=== PATIENT | male | born 1955 | race Caucasian/White ===

== ENCOUNTER 2017-10-05 00:51 | Inpatient (IN) | payer SELFPAY ==
[2017-10-05] MEDS ORDERED: Enoxaparin Sodium 120 MG/0.8 ML SYRINGE SC SCH (02:15)
[2017-10-05 02:31] LABS: Troponin I Less than 0.010 ng/mL (< 0.028)
--- NOTE | 2017-10-05 04:14 | HP ---
DATE OF ADMISSION: 10/05/2017 CHIEF COMPLAINT: Chest pain. PRIMARY CARE PHYSICIAN: [facility]. HISTORY OF PRESENTING ILLNESS: Mr. Michael Werner is a 62-year-old male with past medical history of C OPD, diabetes, hypertension, dyslipidemia, and tobacco abuse, who presented to the emergency room wit h the above-mentioned complaint. History is mainly obtained by the patient himself. [facility] records have been reviewed. According to Mr. Werner, he was chopping some wood outside, as he usually does, when he started to have some pain in the left lateral chest radiating under his arm. It was associated with some shortness of breath and nausea. It lost few minutes and then resolved. He has had multiple repeat episodes si nce then and have been increasing in intensity. Upon arrival to the emergency room in the [facility], he was chest pain free. He was hemodynamically stable. His initial workup included a 12-le ad EKG, which showed right bundle branch block. Cardiac enzymes are negative. He was given aspirin and was sent to [facility]. In our emergency room, he received one dose of Lovenox at 1 mg/kg dosing for possible unstable angina and is now being admitted for same. His repeat cardiac enzymes is also negative. The patient otherwise denies any other recent illnesses. His primary documentation writer has been Dr. Gordo nguyen, but because of insurance issue has not been followed up. He repeats that he had a cardiac cath eterization done 3 times, the recent one was about 2 or 3 years ago and it was normal. The patient h ad a normal stress test in our facility in 08/2013. PAST MEDICAL HISTORY: 1. COPD. 2. Diabetes mellitus. 3. Hypertension. 4. Dyslipidemia. 5. Tobacco abuse. 6. Morbid obesity. 7. History of cholelithiasis, status post laparoscopic cholecystectomy. PAST SURGICAL HISTORY: Laparoscopic cholecystectomy. ALLERGIES: No known medication allergies. SOCIAL HISTORY: He is to his for 42 years. He has history of heavy alcohol abuse, but quit 15 years ago. He has history of tobacco abuse and currently smoking about 1 pack of cigarettes per day. He used to smoke about 5 pack of cigarettes per day. FAMILY HISTORY: Significant for coronary artery disease and heart attack in his father who at t he age of 61 years. Mother in a fire accident. CURRENT MEDICATIONS: Metformin 500 mg daily, carvedilol 6.25 mg b.i.d., levothyroxine 88 mcg daily, escitalopram 20 mg daily, but the patient is not able to afford this medication and has been off it. Lisinopril 10 mg b.i.d. Please note that the patient was told to take an aspirin a day, but he has not been taking it regularly. REVIEW OF SYSTEMS: The following complete review of systems was negative, unless otherwise mentioned in the HPI or below: Constitutional: Weight loss or gain, ability to conduct usual activities. Sk in: Rash, itching. Eyes: Double vision, pain. ENT/Mouth: Nose bleeding, neck stiffness, pain, te nderness. Cardiovascular: Palpitations, dyspnea on exertion, orthopnea. Respiratory: Shortness of breath, wheezing, cough, hemoptysis, fever, or night sweats. Gastrointestinal: Poor appetite, abdo richard pain, heartburn, nausea, vomiting, constipation, or diarrhea. Genitourinary: Urgency, frequen cy, dysuria, nocturia. Musculoskeletal: Pain, swelling. Neurologic/Psychiatric: Anxiety, depressi on. Allergy/Immunologic: Skin rash, bleeding tendency. PHYSICAL EXAMINATION: VITAL SIGNS: Blood pressure 152/92, pulse of 82, saturating 93% on room air, respirations 18, temper ature 98.5. GENERAL: No acute distress, awake, alert, oriented x3, sitting up in chair and wants to go home. Aw norberto, alert, oriented x3. HEENT: Mucous membrane is moist and pink. No oropharyngeal exudate or erythema. Head is normocepha lic, atraumatic. Pupils are equal, reactive to light and accommodation. Extraocular movements intac t. NECK: Supple without any lymphadenopathy, JVD, or bruit. CHEST: Clear to auscultation without any wheezing, rales, or rhonchi. He has decreased breath sound s at bases bilaterally. ABDOMEN: Morbidly obese, soft, nontender, nondistended. Positive bowel sounds. EXTREMITIES: Free of any cyanosis, clubbing, or edema. NEUROLOGIC: Nonfocal. SKIN: Free of any rashes or bruises. PSYCHIATRIC: Normal affect. LABORATORY DATA: CBC is unremarkable. WBC is 10.5, hemoglobin 17.2, platelet count of 159. Serum c hemistries are also unremarkable. Liver enzymes within normal limits. CK-MB 0.7, troponin less than 0.010. BNP 27, blood sugar 98. Chest x-ray by my review has no evidence to suggest pleural effusion, edema, or infiltrate. A 12-benjy d EKG by my review shows complete right bundle branch block with normal ST segments and T waves. Nor mal sinus rhythm at 71 beats per minute. IMPRESSION AND PLAN: 1. Chest pain. The patient has multiple risk factors and this can possibly be unstable angina. At this time, he will be admitted to hospital and we will continue full-dose aspirin. We will obtain a nuclear medicine stress test and consult Cardiology for further recommendations if he needs to underg o cardiac catheterization. He will be on telemetry unit. We will continue to trend serial cardiac e nzymes and check a lipid panel as well. 2. Diabetes mellitus type 2. We will hold his metformin for now in case if he undergoes cardiac cat heterization to prevent any injury. He will be treated with insulin sliding scale with frequent Accu -Cheks. 3. Hypertension. We will resume his JACLYN inhibitor and beta meenu in the form of lisinopril and ca rvedilol respectively. 4. Hypothyroidism, restart his levothyroxine. 5. Morbid obesity. 6. Tobacco abuse. The patient has been counseled. 7. Code status: FULL CODE. Discussed with the patient. DISPOSITION: Mr. Werner is being admitted for chest pain likely unstable angina. Estimated length of stay is at least 2-3 midnights. Further management will depend upon his clinical course.
[2017-10-05] MEDS ORDERED: Bisacodyl 5 MG TAB PO PRN (04:43)
[2017-10-05] MEDS ORDERED: Benzonatate 100 MG CAP PO PRN (04:43)
[2017-10-05] MEDS ORDERED: Ondansetron HCl/PF 4 MG/2 ML Vial IVP PRN ×2 (04:43)
[2017-10-05] MEDS ORDERED: Mag-Al 1200 mg/1200 mg/30 ML UDCUP PO PRN (04:43)
[2017-10-05] MEDS ORDERED: Dextrose 50% Abboject 50 ML SYRINGE SLOW IVP PRN (04:43)
[2017-10-05] MEDS ORDERED: Acetaminophen 325 MG TAB PO PRN (04:43)
[2017-10-05] MEDS ORDERED: hydrALAZINE 20 MG/ML VIAL SLOW IVP PRN (04:43)
[2017-10-05] MEDS ORDERED: Senokot 8.6 MG TAB PO PRN (04:43)
[2017-10-05] MEDS ORDERED: Diabetic Tussin 200 MG/10 ML UDCUP PO PRN (04:43)
[2017-10-05] MEDS ORDERED: Lorazepam 1 MG TAB PO PRN (04:43)
[2017-10-05] MEDS ORDERED: Nitroglycerin 0.4 MG TAB (25 Tab Bottle) SL PRN (04:43)
[2017-10-05] MEDS ORDERED: cloNIDine 0.1 MG TAB PO PRN (04:43)
[2017-10-05] MEDS ORDERED: HumaLOG 300 UNITS/3 ML VIAL SC PRN ×2 (04:43)
[2017-10-05] MEDS ORDERED: Calcium Carbonate 500 MG ChewTAB PO PRN (04:43)
[2017-10-05] MEDS ORDERED: Dextrose 5% in Water 1,000 ML IV PRN (04:43)
[2017-10-05] MEDS ORDERED: Loratadine 10 MG TAB PO PRN (04:43)
[2017-10-05] MEDS ORDERED: traMADol HCl 50 MG TAB PO PRN (04:43)
[2017-10-05 05:13] LABS: Troponin I 0.013 ng/mL (< 0.028)
[2017-10-05 05:54] LABS: Cardiac Risk 6.7 (Less than 4.5)
[2017-10-05] MEDS ORDERED: Levothyroxine Sodium 88 MCG TAB PO SCH (06:00)
[2017-10-05 06:50] VITALS: BMI 39.4
[2017-10-05] MEDS ORDERED: Carvedilol 6.25 MG TAB PO SCH (08:00)
[2017-10-05 08:02] LABS: Troponin I Less than 0.010 ng/mL (< 0.028)
[2017-10-05] MEDS ORDERED: Aspirin 325 MG TAB PO SCH (09:00)
[2017-10-05] MEDS ORDERED: Enoxaparin Sodium 40 MG/0.4 ML SYRINGE SC SCH (09:00)
[2017-10-05] MEDS: Lisinopril 10 MG TAB PO SCH ×2 (09:00→21:07)
--- NOTE | 2017-10-05 12:04 | PDOC.EVN ---
Event Note - Event Note Event Note: CC: Chest pain sub: pt denies dyspnea. denies chest pain VS: Reviewed HEENT: Anterior nares patent, nose normal CVS: S1S2 present, rrr, no murmur, no rubs, no gallop RS: No wheezing, no rhonchi, no accessory muscle usage GI: Soft, nttp, no guarding ENVIRONMENTAL RESEARCH PROJECT MANAGER: Alert and oriented, follows commands A/P: Pt is 62 yrs old male now admitted to hospital due to chest pain 1. Chest pain: S/P Stress test. Appreciate cardio input Monitor for now 2. HTN: Monitor bp closely case d/w pt & RN
[2017-10-05 14:25] LABS: #Basophils 0.1 thou/uL (0.0-0.2); #Eosinphils 0.1 thou/uL (0.0-0.7); #Lymphocytes 2.6 thou/uL (1.20-3.40); #Monocytes 0.6 thou/uL (0.11-0.59); %Basophils 0.9 % (0.0-1.0); %Eosinophils 1.7 % (0.0-10.0); %Lymphocytes 31.3 % (21.0-51.0); %Monocytes 6.8 % (0.0-10.0); %Neutrophils 59.3 % (42.0-75.0); Hemoglobin 17.8 g/dL (14.0-18.0); Mean Corpuscular HGB CONC 32.5 g/dL (32.0-36.0); Mean Corpuscular Hemoglobin 31.6 pg (27.0-31.0); Mean Corpuscular Volume 97.4 fl (80.0-94.0); Mean Platelet Volume 8.4 fL (7.4-10.4); Platelet Count 158 thou/uL (130-400); RBC Distribution Width 13.7 % (11.5-14.5); Red Blood Cell (RBC) Count 5.63 mill/uL (4.70-6.10); White Blood Cell (WBC) Count 8.3 thou/uL (4.8-10.8)
[2017-10-05 14:43] LABS: Anion Gap 13 mmol/L (10-20); BUN (Urea Nitrogen) 13 mg/dL (8.4-25.7); Calc. Creatinine Clearance 145 mL/min (70-130); Calcium 9.3 mg/dL (7.8-10.44); Carbon Dioxide 23 mmol/L (23-31); Chloride 106 mmol/L (98-107); Estimated GFR-MDRD 84; Glucose 99 mg/dL (80-115); Potassium 4.3 mmol/L (3.5-5.1); Sodium 138 mmol/L (136-145)
[2017-10-05] MEDS ORDERED: Regadenoson 0.4 MG/5 ML SYRINGE ONE (16:08)
--- NOTE | 2017-10-05 17:47 | CON ---
DATE OF CONSULTATION: 10/05/2017 REASON FOR CONSULTATION: Chest pain. HISTORY OF PRESENT ILLNESS: Mr. Werner is a 62-year-old gentleman with history of multiple cardiac cat heterizations, who presented with recurrent chest pain. Mr. Werner states that he had an episode of chest pain which brought him to the hospital early this mor harry. He previously had some chest pain on the left lateral chest under his arm. He felt short of b reath and nauseated, it lasted for a few minutes and resolved. He ultimately came to the emergency r oom. Cardiac enzymes are negative. The patient was given one dose of Lovenox 1 mg/kg subcutaneous. Currently, pain free. PAST MEDICAL HISTORY: He has a history of multiple cardiac catheterizations last one was 2012, he is not completely sure. He said he was told that "he had the heart of 20-year-old" but his said h teri had one vessel with a very small amount of narrowing. PAST MEDICAL HISTORY: 1. Chronic obstructive pulmonary disease. 2. Diabetes. 3. Hypertension. 4. Smoking, continues to smoke. 5. Morbid obesity. 6. History of cholelithiasis. PAST SURGICAL HISTORY: Laparoscopic cholecystectomy. ALLERGIES: None known. SOCIAL HISTORY: He is to his for 42 years. He previously heavy alcohol use, now abstin ent. History of very heavy tobacco use, four packs a day, now he is down to half pack a day. FAMILY HISTORY: Positive for coronary disease. MEDICATIONS: 1. Metformin. 2. Carvedilol. 3. Levothyroxine. 4. Lexapro. 5. Lisinopril. REVIEW OF SYSTEMS: Constitutional: No significant weight gain or loss. Vision: No changes. Hearing: No changes. Pu lmonary: No cough or wheezing. Gastrointestinal: No nausea, vomiting, diarrhea. Skin: No rashes. Neurologic: No unilateral weakness or numbness. Psychiatric: No unusual depression or anxiety. Hematologic: No unusual bruising. Genitourinary: No burning with urination. PHYSICAL EXAMINATION: GENERAL: This is a pleasant middle-aged gentleman, in no distress. VITAL SIGNS: Blood pressure 128/80, pulse 60 and regular. HEENT: Sclerae nonicteric. Mouth mucous membranes moist. NECK: Supple. No lymphadenopathy. LUNGS: Clear. CARDIAC: Normal S1, normal S2. There is no murmur, rub, or gallop. ABDOMEN: Soft, nontender, no hepatosplenomegaly. EXTREMITIES: Warm and dry. No clubbing or cyanosis. There is no significant edema. PERTINENT LABORATORY AND X-RAY FINDINGS: EKG: Sinus rhythm with right bundle branch block and PVCs. TSH 11.5. LDL: Cholesterol 73, troponins are normal. ASSESSMENT: 1. Chest pain, possibly angina. 2. Diabetes. 3. Smoking. 4. Hypercholesterolemia, being treated. PLAN: Part of this stress test has been done today. The rest is pending for tomorrow morning. Furt her recommendations after the stress test is back.
[2017-10-05] MEDS ORDERED: Atorvastatin Calcium 20 MG TAB PO SCH (21:00)
[2017-10-05] MEDS: Carvedilol 6.25 MG TAB PO SCH (21:08)
[2017-10-06 05:49] LABS: #Eosinphils 0.2 thou/uL (0.0-0.7); #Lymphocytes 2.4 thou/uL (1.20-3.40); #Monocytes 0.6 thou/uL (0.11-0.59); #Neutrophils 5.8 thou/uL (1.40-6.50); %Basophils 0.4 % (0.0-1.0); %Eosinophils 1.9 % (0.0-10.0); %Lymphocytes 26.8 % (21.0-51.0); %Monocytes 6.5 % (0.0-10.0); %Neutrophils 64.4 % (42.0-75.0); Hemoglobin 17.2 g/dL (14.0-18.0); Mean Corpuscular HGB CONC 32.5 g/dL (32.0-36.0); Mean Corpuscular Hemoglobin 31.6 pg (27.0-31.0); Mean Corpuscular Volume 97.2 fl (80.0-94.0); Platelet Count 162 thou/uL (130-400); RBC Distribution Width 13.6 % (11.5-14.5); Red Blood Cell (RBC) Count 5.45 mill/uL (4.70-6.10); White Blood Cell (WBC) Count 8.9 thou/uL (4.8-10.8)
[2017-10-06] MEDS ORDERED: Levothyroxine Sodium 50 MCG TAB PO SCH (06:00)
[2017-10-06 06:07] LABS: Anion Gap 16 mmol/L (10-20); BUN (Urea Nitrogen) 13 mg/dL (8.4-25.7); Calc. Creatinine Clearance 151 mL/min (70-130); Calcium 9.2 mg/dL (7.8-10.44); Carbon Dioxide 19 mmol/L (23-31); Chloride 105 mmol/L (98-107); Estimated GFR-MDRD 88; Glucose 113 mg/dL (80-115); Sodium 136 mmol/L (136-145)
[2017-10-06 06:27] LABS: Free T4 (Free Thyroxine) 0.79 ng/dL (0.70-1.48)
[2017-10-06] MEDS ORDERED: Aspirin 325 MG TAB PO SCH (09:00)
--- NOTE | 2017-10-06 09:18 | PDOC.PN ---
- Subjective Encounter Start Date: 10/06/17 Encounter Start Time: 10:00 Subjective: Patient without chest pain. Wants to go home. - Objective MAR Reviewed: Yes Vital Signs & Weight: Vital Signs (12 hours) Temp Pulse Resp BP BP Pulse Ox 10/06/17 07:15 97.5 F L 64 20 114/64 99 10/06/17 04:00 97.7 F 71 18 113/70 98 Weight Weight 266 lb I&O: 10/05/17 10/06/17 10/07/17 06:59 06:59 06:59 Intake Total 480 Balance 480 Result Diagrams: 10/06/17 04:58 10/06/17 04:58 Additional Labs: Accuchecks 10/06/17 10/05/17 06:24 21:06 POC Glucose 135 H 106 Phys Exam - Physical Examination Constitutional: NAD Obese HEENT: moist MMs Respiratory: no wheezing, no rales, no rhonchi Cardiovascular: RRR, no significant murmur Gastrointestinal: soft, positive bowel sounds Obese Neurological: non-focal, moves all 4 limbs Psychiatric: normal affect, A&O x 3 Dx/Plan (1) Chest pain, rule out acute myocardial infarction Code(s): R07.9 - CHEST PAIN, UNSPECIFIED Status: Acute Comment: Stress test with reversible perfusion defect in anteriolateral wall (2) DM type 2 (diabetes mellitus, type 2) Status: Chronic (3) HTN (hypertension) Code(s): I10 - ESSENTIAL (PRIMARY) HYPERTENSION Status: Chronic Qualifiers: Hypertension type: essential hypertension Qualified Code(s): I10 - Essential (primary) hypertension (4) Hypothyroidism Code(s): E03.9 - HYPOTHYROIDISM, UNSPECIFIED Status: Chronic (5) COPD (chronic obstructive pulmonary disease) Status: Chronic (6) Tobacco abuse Code(s): Z72.0 - TOBACCO USE Status: Chronic - Plan cont current plan of care, DVT proph w/lovenox Stress test with small reversible defect. Will await cardiology recs. * . - Discharge Day Encounter end time: 10:30
[2017-10-06] MEDS: Carvedilol 6.25 MG TAB PO SCH (12:03)
[2017-10-06] MEDS: Lisinopril 10 MG TAB PO SCH (12:03)
[2017-10-06 12:04] VITALS: BP 93/61
--- NOTE | 2017-10-06 12:23 | NM ---
NUCLEAR MEDICINE CARDIAC MYOCARDIAL PERFUSION SPECT EJECTION FRACTION STUDY WALL MOTION CINE: HISTORY: 62-year-old male with chest pain. TECHNIQUE: Number of days: 2 Rest study: Tc99m sestamibi (Cardiolite) dose: 28.0 mCi Pharmacologic stress: Lexiscan dose: 0.4 mg Stress study: Tc99m sestamibi (Cardiolite) dose: 28.0 mCi FINDINGS: CARDIAC (MYOCARDIAL PERFUSION) SPECT There is a small, faint, apparent perfusion defect at the anterolateral wall near the apex seen on th e stress images, but not visualized on the rest images. No fixed perfusion defect is identified. EJECTION FRACTION STUDY EF = 53% WALL MOTION CINE Hypokinetic septum. IMPRESSION: Questionable small region of reversible ischemia in the anterolateral wall near the apex. CODE T. JN R POS: DANIELLE
[2017-10-06 13:13] VITALS: TEMP 98
--- NOTE | 2017-10-06 15:00 | DIS ---
PRIMARY CARE PHYSICIAN: [facility]. ADMISSION DIAGNOSES: 1. Chest pain. 2. Diabetes mellitus type 2. 3. Hypertension. 4. Hypothyroidism. 5. Morbid obesity. 6. Tobacco abuse. DISCHARGE DIAGNOSES: 1. Coronary artery disease with mildly abnormal stress test. 2. Diabetes mellitus type 2. 3. Hypertension. 4. Hypothyroidism. 5. Morbid obesity. 6. Tobacco abuse. PROCEDURES: Nuclear medicine stress test showing questionable small region of reversible ischemia in the anterior lateral wall near the apex and an ejection fraction of 53% with a hypokinetic septum. CONSULTATIONS: Cardiology, Dr. Rojas. PERTINENT LABORATORY DATA: Cardiac markers set negative x3. Triglycerides were elevated at 200. Cholesterol profile was okay. TSH was a little elevated at 11.5 with a normal free T4 and free T3. SUMMARY OF HOSPITAL COURSE: This is a 62-year-old white male with a known history of COPD, diabetes, hypertension, dyslipidemia, and tobacco abuse who presented with chest pain. Chest pain came on while he was chopping wood associated with shortness breath and nausea and by the time he got to the emergency room, he was chest pain free. Cardiac enzymes were negative in the hospital. Dr. Rojas was consulted for Cardiology, ordered a nuclear medicine stress test, it was a 2-day test. This showed the above results. His medications adjusted with a decrease in his lisinopril due to his blood pressure is running a bit low and his pravastatin was changed to atorvastatin and the patient was cleared to go home by Dr. Rojas the day of discharge. DISCHARGE PLAN: Discharge home. Follow up with [facility] in the next 7- [address] Rojas in the next 2-3 weeks. ACTIVITY: As tolerated. Diabetic, low sodium diet. DISCHARGE MEDICATIONS: 1. Lisinopril 5 mg daily, 30 tablets dispensed. 2. Atorvastatin 40 mg daily, 30 tablets dispensed. 3. Continue other medications. 4. Carvedilol 6.25 mg twice a day. 5. Aspirin 325 mg daily. 6. Gabapentin 300 mg 3 times a day. 7. Levothyroxine 75 mcg daily. 8. Metformin 500 mg twice a day. 9. Lexapro 10 mg daily. 10. Nitroglycerin sublingual as needed written by Dr. Rojas. [facility]
--- NOTE | 2017-10-06 15:20 | PRG ---
DATE OF SERVICE: 10/06/2017 SUBJECTIVE: Mr. Werner has did well. Currently, no chest pain or pressure. OBJECTIVE: VITAL SIGNS: Blood pressure was 114/64 with a followup was 93/61. LUNGS: Clear. CARDIAC: Normal S1, normal S2. ABDOMEN: Soft, nontender. EXTREMITIES: There is no edema. Femoral pulse is strong on the right side. IMAGING: Stress test was done. The test indicated a questionable small region of reversible ischemi a in the anterior lateral wall near the apex with an ejection fraction of 53%. ASSESSMENT: 1. Chest pain suspicious for angina. 2. Minimal coronary disease at catheterization by Dr. Cortes 5 years ago per family. 3. Hypercholesterolemia, on treatment, LDL 73. PLAN: I had a long discussion with the patient about medical therapy versus repeating cardiac cathet erization. I discussed the advantage of cardiac catheterization being the more definitive test. Florentin garcia explained to him that in view of the findings that a cardiac catheterization was not absolutely man datory, but certainly could be done. After further discussion, the patient prefers not to have cardi ac catheterization and will be discharged on medications, on aspirin 81 mg a day, atorvastatin 40 mg a day, carvedilol 6.25 mg twice daily, lisinopril 5 mg a day. I asked patient to come back and see elda williamson in the office in a month. If he has recurrent chest pain unresolved quickly with nitroglycerin, he should come back to the hospital. The patient declines cardiac catheterization at this point. Nitr oglycerin if needed.
[2017-10-06] MEDS ORDERED: Atorvastatin Calcium 40 MG TAB PO SCH (21:00)
[2017-10-07] MEDS ORDERED: Lisinopril 5 MG TAB PO SCH (09:00)
--- NOTE | 2017-10-10 15:15 | EKG ---
Test Reason : Blood Pressure : / mmHG Vent. Rate : 072 BPM Atrial Rate : 072 BPM P-R Int : 172 ms QRS Dur : 122 ms QT Int : 426 ms P-R-T Axes : 066 224 053 degrees QTc Int : 466 ms Normal sinus rhythm Right bundle branch block Abnormal ECG Confirmed by REGAN MICHELLE, RAMONA ([id number]), editor dictionary ROSEANNA COVARRUBIAS ([id number]) on 10/10/2017 3:14:31 PM Referred By: MD SPEARS Confirmed By:RAMONA SPEARS MD
--- NOTE | 2017-10-15 13:03 | STRESS ---
Acquisition Time: 2017-10-05 11:47:09 Total Exercise Time: 00:01:00 Test Indications: CHEST PAIN Medications: Protocol: LEXISCAN Max HR: 092 BPM 57% of Pred: 159 BPM Max BP: 124/076 mmHG Max Work Load: 1.0 METS RESTING ECG: NORMAL SINUS RHYTHM AT 65 BPM WITH COMPLETE RIGHT BUNDLE BRANCH BLOCK AND RARE PVC'S SYMPTOMS: NONE NORMAL BP RESPONSE ECTOPY: NONE ECG STRESS: NO SIGNIFICANT CHANGES INTERPRETATION: NEGATIVE ECG/ AWAIT NUCLEAR IMAGES FOR DEFINITIVE DIAGNOSIS Confirmed by DR. Jodie BARRETT ([id number]), photography editor RAVINDER AKHTAR ([id number]) on 10/15/2017 1:03:10 PM Referred By: MD Neymar BOURNE Confirmed By:DR. Jodie BARRETT
== END 2017-10-06 16:23 | disposition home or self-care (01) | DRG 303 ==
LOC: ERS 00:51 → ERHOLD 02:01 → 2NO 10:39
PROVIDERS: ADMIT Internal Medicine; ATTEND Internal Medicine
PROC: 5A2204Z Restoration of Cardiac Rhythm, Single (ICD-10-PCS; principal; 2017-10-06)
DX: I25.110 Atherosclerotic heart disease of native coronary artery with unstable angina pectoris (principal); E66.01 Morbid (severe) obesity due to excess calories; I10 Essential (primary) hypertension; E03.9 Hypothyroidism, unspecified; E11.9 Type 2 diabetes mellitus without complications; E78.5 Hyperlipidemia, unspecified; J44.9 Chronic obstructive pulmonary disease, unspecified; E78.00 Pure hypercholesterolemia, unspecified; F17.210 Nicotine dependence, cigarettes, uncomplicated; R94.39 Abnormal result of other cardiovascular function study; Z68.39 Body mass index [BMI] 39.0-39.9, adult
CPT/HCPCS: 36415; 36416; 78452; 80048; 80061; 84439; 84443; 84481; 84484; 85025; 93005; 93017; 94760; 96360; 96372; 99406; A9500; J1650; J2785

== ENCOUNTER 2024-03-02 17:18 | Emergency (ER) | payer SELFPAY ==
[~2024-03-02 17:18] MED LIST: Iopamidol-370 76% 500 ML MDV (1 ML CHARGE) ONE
[2024-03-02] MEDS ORDERED: HYDROcodone/Acetaminophen 10/325 mg Tablet ONE (18:01)
[2024-03-02 18:31] LABS: #Basophils Less than 0.03 10x3/uL (0.0-0.2); %Basophils 0.3 % (0.0-1.0); %Lymphocytes 25.2 % (21.0-51.0); %Monocytes 8.6 % (0.0-10.0); %Neutrophils 64.5 % (42.0-75.0); Hematocrit 47.4 % (42.0-52.0); Hemoglobin 16.1 g/dL (14.0-18.0); Mean Corpuscular Volume 88.4 fL (78.0-98.0); Mean Platelet Volume 9.9 fL (7.4-10.4); Platelet Count 168 10x3/uL (130-400); RBC Distribution Width 17.8 % (11.5-14.5); Red Blood Cell (RBC) Count 5.36 mill/uL (4.70-6.10)
[2024-03-02 18:48] LABS: CRP,High Sensitivity (Inhouse) 2.77 mg/dL (< or = 0.5)
[2024-03-02 18:49] LABS: ALT (SGPT) 14 U/L (8-55); AST (SGOT) 22 U/L (5-34); Albumin 3.1 g/dL (3.4-4.8); Alkaline Phosphatase 95 U/L (40-110); Anion Gap 11 mmol/L (10-20); BUN (Urea Nitrogen) 11 mg/dL (8.4-25.7); Bilirubin, Total 0.7 mg/dL (0.2-1.2); Calc. Creatinine Clearance 0 mL/min (70-130); Calcium 9.3 mg/dL (7.8-10.44); Carbon Dioxide 28 mmol/L (23-31); Chloride 100 mmol/L (98-107); Estimated GFR 96; Globulin 3.9 g/dL (2.4-3.5); Glucose 93 mg/dL (80-115); Lipase 16 U/L (8-78); Potassium 4.2 mmol/L (3.5-5.1); Sodium 135 mmol/L (136-145)
[2024-03-02 18:52] LABS: Troponin I 0.018 ng/mL (< 0.028)
[2024-03-02] MEDS ORDERED: Morphine 4 MG/ML VIAL ONE (20:34)
== END 2024-03-02 20:45 | disposition home or self-care (01) ==
LOC: ERS 17:18
DX: M54.50 Low back pain, unspecified (principal); R10.9 Unspecified abdominal pain; L03.114 Cellulitis of left upper limb; C78.7 Secondary malignant neoplasm of liver and intrahepatic bile duct; E11.9 Type 2 diabetes mellitus without complications; I10 Essential (primary) hypertension; E03.9 Hypothyroidism, unspecified; E78.00 Pure hypercholesterolemia, unspecified; J44.9 Chronic obstructive pulmonary disease, unspecified; Z79.899 Other long term (current) drug therapy; Z79.82 Long term (current) use of aspirin
CPT/HCPCS: 74177; 80053; 83690; 84484; 85025; 86141; 93005; 96374; J2270